=== PATIENT | female | born 2005 | race Caucasian/White ===

== ENCOUNTER 2025-08-01 10:58 | Emergency (ER) | payer BC, SELFPAY ==
--- NOTE | 2025-08-01 | ECG_ITS ---
Test Reason : SYNCOPE Blood Pressure : */* mmHG Vent. Rate : 93 BPM Atrial Rate : 93 BPM P-R Int : 144 ms QRS Dur : 78 ms QT Int : 350 ms P-R-T Axes : 36 31 36 degrees QTcB Int : 435 ms Normal sinus rhythm Normal ECG No previous ECGs available Referred By: Generic ED Physician Electronically Signed By: SERA RIOS MD
--- NOTE | ~2025-08-01 | XR_ITS ---
CLINICAL HISTORY: syncope 2 view chest x-ray Comparison: None provided Findings: The lungs are clear. Heart size is normal. No acute fracture. IMPRESSION: 1. No acute findings. This document has been electronically signed by: Jane Mendoza MD on 08/01/2025 12:24:45
[2025-08-01 11:00] VITALS: BP 96/64; PULSE 110; RESP 18; TEMP 36.3; O2SAT 98; BMI 32.6
--- NOTE | 2025-08-01 11:28 | ED_ITS ---
HPI - General Adult General Chief complaint: Syncope Stated complaint: passed out quest dehydration Time Seen by Provider: 08/01/25 11:28 Source: patient and family (patient's cousin once removed) Mode of arrival: ambulatory Limitations: no limitations History of Present Illness ED Provider: Ly Reveles PA-C HPI narrative: Patient is a 19 year old assigned female at with no reported medical history currently on Zepbound for weight loss presenting to the emergency department today with nausea, vomiting, diarrhea, and a syncopal episode. Patient states that her Zepbound dose was increased last week. Patient states that she has always had diarrhea on the Zepbound but it was much worse over the 24 hours and this morning she had an episode of passing out then once she awoke, she ate a donut and vomited. Patient states that she feels somewhat better now and is able to tolerate PO. Patient denies any oral contraceptive use, tobacco use, or recent travel. Patient denies any other complaints at this time. Related Data Allergies Allergy/AdvReac Type Severity Reaction Status Date / Time No Known Allergies Allergy Verified 08/01/25 11:05 Review of Systems 2 Constitutional: Constitutional: Reports as per HPI Eyes: Eyes: Reports as per HPI ENT: Reports as per HPI Cardiovascular: Cardiovascular: Reports as per HPI Respiratory: Respiratory: Reports as per HPI Gastrointestinal: Gastrointestinal: Reports as per HPI Genitourinary: Genitourinary: Reports as per HPI Musculoskeletal: Musculoskeletal: Reports as per HPI Integumentary/Breasts: Skin/Breast: Reports as per HPI Neurologic: Reports as per HPI Psychiatric: Psychiatric: Reports as per HPI Endocrine: Endocrine: Reports as per HPI Hematologic/Lymphatic: Hematologic/Lymphatic: Reports as per HPI Allergic/Immunologic: Allergic/Immunologic: Reports as per HPI PMF Past Medical History Attestation statement: The following information was validated with the patient. (all information validated with the patient's cousin once removed) Source: old records reviewed, obtained from family (patient's cousin once removed provided additional history and confirmed the history provided by the patient) and nursing notes reviewed Social History Social History Advance Directives: No Advance Directives Information Provided: No Do you have a plan to hurt others: No Plan Physical Exam ED Vital Signs: Vital Signs - 24 hr 08/01/25 11:00 08/01/25 12:53 Temperature 97.4 F 97.9 F Pulse Rate 110 H 80 Respiratory Rate 18 16 Blood Pressure 96/64 97/53 L Pulse Oximetry 98 100 Oxygen Delivery Method Room Air Room Air BMI result Body Mass Index 32.6 Const General: cooperative, no acute distress, alert and awake Nutritional Appearance: well nourished Orientation/consciousness: patient oriented x3 HENMT Head: Yes normal to inspection and Yes atraumatic Ears: hearing grossly normal bilaterally and external ears normal General nose exam: Normal external nose present, no nasal discharge noted and no epistaxis Face and sinus: Yes normal facial exam, No abrasion and No laceration Mouth: Normal oral and palatal mucosa present, no drooling and no muffled voice Eyes General: appearance normal, both eyes and all related structures Periorbital: periorbital findings normal Eyelids: Yes eyelids normal Conjunctivae: conjunctivae normal Pupils: Equal, round and reactive pupils present EOM: EOMs intact bilaterally Neck Neck: Yes normal visual inspection and Yes full ROM Resp Effort & Inspection: normal respiratory effort and able to speak in complete sentences Neuro General: patient oriented x3, moves all extremities and CN's II-XI intact bilaterally Cranial nerves: Yes Equal, round and reactive pupils present Cognition (Neuro): normal cognition Extrem General: Yes normal to inspection, Yes full ROM and Yes capillary refill normal Psych Appearance: grossly normal Mental Status: mental status grossly normal Affect: normal affect Attitude: cooperative Thought process: Normal thought process present Thought content: Normal thought content present Insight: Good insight present (Psych) Medications Administered Discontinued Medications Generic Name Dose Route Start Last Admin Trade Name Arcenioq PRN Reason Stop Dose Admin Sodium Chloride 1,000 mls @ 999 mls/hr 08/01/25 11:30 08/01/25 11:58 Ns IV 08/01/25 12:30 999 mls/hr .Q1H1M GAURAV Administration Medical Decision Making Medical Decision Making MDM Narrative: Patient is a 19 year old assigned female at with no reported medical history currently on Zepbound for weight loss presenting to the emergency department today with nausea, vomiting, diarrhea, and a syncopal episode. Patient's physical exam was as noted in the physical exam portion of this note. Patient's blood work showed a minimally elevated WBC count of 12.5 but otherwise unremarkable. This is consistent with a stress reaction s/p vomiting. Patient's EKG was unremarkable. Patient's clinical presentation is most consistent with poor tolerance of the zepbound dose increase. I explained my physical exam findings as well as all test results to the patient and the patient's cousin once removed. I answered all questions asked by the patient and the patient's cousin once removed. Patient received IV fluids which, upon re-evaluation, she stated it helped her significantly. I stressed the importance of the patient taking her medication as directed (either prescribed or as the over the counter packaging recommends). I stressed the importance of the patient following up with her primary care provider. I stressed the importance of the patient returning to the emergency department immediately if her symptoms were to worsen or if she were to develop any dizziness, shortness of breath, difficulty breathing, chest pain, blurry vision, loss of vision, nausea, vomiting, abdominal pain, fever, chills, back pain, or any other complaints. Patient and the patient's cousin once removed verbalized agreement and understanding with this treatment plan and discharge. Differential Diagnosis Differential Diagnoses: The differential diagnosis associated with the presentation includes Zepbound intolerance Nausea Vomiting Gastroenteritis Viral illness Diarrhea Admission/Observation Consideration of admission/observation: Escalation of care including admission/observation considered Patient would have been admitted to the hospital had her work up had any findings where hospital admission was appropriate and her clinical presentation warranted hospital admission. Lab Data [facility] Lab Attestation statement: I reviewed the patient's lab results. My interpretation of these results are in the [facility] Rationale portion of this note. 08/01/25 11:24 08/01/25 11:24 Labs: Lab Results 08/01/25 Range/Units 11:24 WBC 12.5 H (4.8-10.8) X10*3/uL RBC 5.21 (4.20-5.50) X10*6/uL Hgb 15.1 (12.0-16.0) g/dl Hct 45.8 (37.0-47.0) % MCV 87.9 (80.0-98.0) fL MCH 29.0 (27.0-33.0) pg MCHC 33.0 (31.0-35.0) g/dl RDW 12.9 (11.0-16.0) % Plt Count 275 (160-400) X10*3/uL MPV 9.8 (9.4-12.3) fL Immature Gran % (Auto) 0.2 (0.0-0.4) % Neut % (Auto) 88.9 H (45-73) % Lymph % (Auto) 6.3 L (20-40) % Troup % (Auto) 3.4 (2-11) % Eos % (Auto) 1.0 (0-4) % Baso % (Auto) 0.2 (0-2) % Lymph # (Auto) 0.8 L (1.2-4.9) X10*3/uL Troup # (Auto) 0.4 (0.1-1.2) X10*3/uL Eos # (Auto) 0.1 (0.0-0.4) X10*3/uL Baso # (Auto) 0.0 (0.0-0.2) X10*3/uL Abs Immat Gran (auto) 0.03 (0.00-0.03) X10*3/uL Absolute Neuts (auto) 11.1 H (2.0-8.3) x10*3/uL Absolute Nucleated RBC 0.000 (0.0-0.012) X10*3/uL Nucleated RBC % (auto) 0.0 (0.0-0.2) /100WBC Sodium 145 (135-145) mmol/L Potassium 4.7 (3.3-5.1) mmol/L Chloride 111 H (96-108) mmol/L Carbon Dioxide 25 (22-29) mmol/L Anion Gap 14 (12-20) BUN 21 H (9-16) mg/dL Creatinine 0.76 (0.5-1.4) mg/dL Estim Creat Clear Calc 128.9 Estimated GFR > 60 Random Glucose 106 (60-115) mg/dL Calcium 9.1 (8.4-10.2) mg/dL Magnesium 1.9 (1.6-2.6) mg/dL Total Bilirubin 0.9 (0.0-1.0) mg/dL AST 19 (5-31) U/L ALT 15 (0-31) U/L Alkaline Phosphatase 89 (39-117) U/L Troponin I High Sens < 2.7 (<3.5-17.0) ng/L Total Protein 7.6 (6.5-8.0) g/dL Albumin 4.8 (3.5-5.0) g/dL Lipase 18 (8-78) U/L Beta HCG, Quant < 2 mIU/mL Independent Interpretation I performed an independent interpretation of an: EKG Interpretation: I independently interpreted this EKG and am in agreement with the below findings: Vent. Rate: 93 BPM Atrial Rate: 93 BPM P-R Int: 144 ms QRS Dur: 78 ms QT Int: 350 ms P-R-T Axes: 36 31 36 degrees QTcB Int: 435 ms Normal sinus rhythm Normal ECG No previous ECGs available DD/ [id number] Independent Historian Clinical information obtained from an independent historian. History obtained from or confirmed by: Other (patient's cousin once removed provided additional history and confirmed the history provided by the patient. ) Tests considered The following testing was considered but not selected: I considered obtaining a CT scan of the abdomen/pelvis however, the patient's current clinical presentation did not warrant this. Discharge Plan Discharge Clinical Impression: Syncope, Diarrhea, Vomiting Patient Disposition: Home, Self-Care Instructions: Syncope (DC), Acute Nausea and Vomiting (DC), Acute Diarrhea (ED) Additional Instructions: Your work up today was reassuring there is no EMERGENT cause for your symptoms. I am suspicious that your episode today was secondary to your Zepbound dose increase - I recommend you go back down to your original dose and drink plenty of fluids. IF you are prescribed home medications and/or you are taking over the counter medications at home - it is very important you continue to do so as prescribed / directed unless told otherwise. Follow up with your primary care provider. Return to the emergency department immediately if your symptoms worsen or if you develop any numbness, tingling, dizziness, shortness of breath, difficulty breathing, chest pain, blurry vision, loss of vision, nausea, vomiting, abdominal pain, fever, chills, back pain, or any other complaints. Please see the information below about our Patient Portal. If you are not yet enrolled in the [facility] Patient Portal, you will receive an enrollment email invitation following your visit to any [facility] setting. You may also self-enroll in the Patient Portal by visiting our website: [email or web address] The following information is required to access the Patient Portal: - Your [facility] Medical Record Number - Your personal home email address (must match what is in your electronic medical record, Registration staff can assist with this) - Name - Date of Capabilities of the Patient Portal: - Message some providers - View upcoming appointments - Access your health summary, medical history, and visit history - View current conditions and allergies - View procedure and lab results - View your medications, including guidelines, side effects, and precautions - Complete pre-appointment questionnaires requested by your provider - Ready summary reports of your office visits and procedures To access the Patient Portal Mobile Thomas, follow these directions: - Search Driverdoth in the [employer] Store or [employer] Store - Download the Thomas - Search for [facility] - Enter your login/password Referrals: Shania Boucher PA [Primary Care Provider, Family Practice] Print Language: Maori
[2025-08-01 11:29] LABS: MANUAL DIFF FLAG NO
[2025-08-01 11:31] LABS: Hematocrit 45.8 % (37.0-47.0); Hemoglobin 15.1 g/dl (12.0-16.0); Imm Gran Abs Auto 0.03 X10*3/uL (0.00-0.03); Imm Gran Pct Auto 0.2 % (0.0-0.4); Lymphocytes Absolute Auto 0.8 X10*3/uL (1.2-4.9); Mean Corpuscular HGB Conc 33.0 g/dl (31.0-35.0); Mean Corpuscular Hemoglobin 29.0 pg (27.0-33.0); Mean Corpuscular Volume 87.9 fL (80.0-98.0); NRBC Abs Auto 0.000 X10*3/uL (0.0-0.012); NRBC Pct Auto 0.0 /100WBC (0.0-0.2); Platelet Count 275 X10*3/uL (160-400); Red Blood Count 5.21 X10*6/uL (4.20-5.50); White Blood Count 12.5 X10*3/uL (4.8-10.8)
[2025-08-01 11:51] LABS: Alanine Aminotransferase 15 U/L (0-31); Albumin Level 4.8 g/dL (3.5-5.0); Alkaline Phosphatase 89 U/L (39-117); Anion Gap 14 (12-20); Aspartate Amino Transferase 19 U/L (5-31); Blood Urea Nitrogen 21 mg/dL (9-16); Calcium 9.1 mg/dL (8.4-10.2); Carbon Dioxide 25 mmol/L (22-29); Chloride 111 mmol/L (96-108); Creatinine Clr Calc Pharmacy 128.9; Estimated Glomerular Filt Rate > 60; Magnesium 1.9 mg/dL (1.6-2.6); Potassium 4.7 mmol/L (3.3-5.1); Sodium 145 mmol/L (135-145); Total Protein 7.6 g/dL (6.5-8.0)
[2025-08-01 11:52] LABS: Troponin-I High Sensitivity < 2.7 ng/L (<3.5-17.0)
--- OUTSIDE RECORDS SUMMARY | 2025-08-01 11:53 | XMS_ITS | Clinical Summary ---
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 Then 1 drop, every 4 hours, while awake, for the next 5 days. 5 mL Active Additional Information Patient not taking.Reported on 10/20/2022 Active Problems Problem Noted Date Diagnosed Date Onychomycosis 04/20/2021 Encounters Date Type Department Care Team Description 05/25/2025 8:38 AM EDT - 05/25/2025 11:59 PM EDT Hospital Encounter [facility] [address] [place] [address] Venus Weaver PA Discharge Disposition: Home or Self Care from Last 3 Months Immunizations Immunization Administration Dates Next Due COVID-19 (Pre-08/13) Pfizer Vaccine, mRNA, PF 02/26/2021,02/05/2021 DTaP 08/19/2007, 5,02/19/2004,12/20,2003 HPV9 09/03/2017,08/29/2016 Hepatitis A, ped/adol, 2 dose 09/22/2019, 018 Hepatitis B, unspecified formulation 02/19/2004, 2003,2003 Hib, unspecified formulation 11/14/2004, 02/19/2004,2003,10/19 IPV 08/19/2007, 4,2003,10/19 Influenza Quadrivalent Prese rvative Free IM 08/04/2022,09/01/2021,07/02/2020,08/16,09/17/2018,07/04/2017 Influenza Quadrivalent w/ Pr eservative IM 09/13/2021,08/29/2016,08/24/2015 MMR 08/14/2008,08/15/2004 Meningococcal MCV4P 09/22/2019,08/29/2016 Pneumococcal conjugate, PCV 7 11/14/2004 ,08/15/2004,2003,08/19 Tdap 08/24/2015 Varicella 08/14/2008,08/15/2004 Social History Tobacco Use Types Packs/Day Years Used Date Smoking Tobacco: Never Smokeless Tobacco: Never Tobacco Cessation:Counseling Given: Not Answered Education Answer Date Recorded Are you interested in more education? Not on april e 02/16/2023 Are you concerned about learning? Not on file 02/16/2023 No 02/16/2023 No 02/16/2023 Digital Access Answer Date Recorded No 03/16/2023 No 03/16/2023 Reliable internet access at home? Not on file 03/16/2023 Device with a working camera? Not on file Comments Unknown Sex and Gender Information Value Date Recorded Sex Assigned at Not on file Legal Sex Female 8:44 PM EDT Gender Identity Not on file Sexual Orientation Not on file Last Filed Vital Signs Vital Sign Reading Time Taken Comments Blood Pressure 108/76 10/20/2022 10:42 AM EST Pulse 99 10/20/2022 10:42 AM EST Temperature 36.8 C (98.3 F) 10/20/2022 10:42 AM EST Respiratory Rate 18 05/31/2021 1:50 PM EDT Oxygen Saturation 100% 10/20/2022 10:42 AM EST Inhaled Oxygen Concentration - - Weight 86.2 kg (190 lb) 10/20/2022 10:42 AM EST Height 167.6 cm (5' 6 ) 10/20/2022 10:42 AM EST Body Mass Index 30.67 10/20/2022 10:42 AM EST Plan of Treatment Health Maintenance Due Date Last Done Comments DEPRESSION SCREENING 2015 SMOKING Hx and SMOKELESS TOBACCO SCREENING 2016 MENINGOCOCCAL VACCINES (B) (1 of 2 - Standard) 2019 ADOLESCENT UNIVERSAL LIPID SCREENING 2020 CHLAMYDIA SCREENING 09/22/2020 09/22/2019 HEPATITIS C SCREENING 2021 HIV ONE-TIME SCREENING (18-65 YEARS) 2021 INFLUENZA VACCINE (#1) 2025 , 09/13/2021, 09/01/2021, Additional history exists COVID-19 VACCINE ( season) 2025 08/04/2022, 10/07/2021, 02/26/2021, Additional history exists Adult Td,Tdap Booster 08/24/2025 08/24/2015 COMBINED DTaP,Tdap,Td (7 - Td or Tdap) 08/24/2025 08/24/2015, 08/19/2007, 11/14/2004, Additional history exists PAP SMEAR 05/25/2028 05/25/2025 HIB VACCINES Completed 11/14/2004, 01/22, 2003, Additional history exists PNEUMOCOCCAL VACCINES (0-49 years) Aged Out 11/14/2004, 08/15/2004, 2003, Additional history exists No longer eligible based on patient's age to complete this topic MMR VACCINES Completed 08/14/2008, 08/15/2004 HPV VACCINES Completed 09/03/2017, 08/29/2016 HEPATITIS A VACCINES Completed 09/22/2019, 09/17/20 18 MENINGOCOCCAL VACCINES (ACWY) Completed 09/22/2019, 08/29/2016 Medical Devices Not on file Procedures Procedure Name Priority Date/Time Associated Diagnosis Comments PAP TEST Routine 05/25/2025 12:00 AM EDT CHLAMYDIA TRACHOMATIS AND NEISSERIA GONORRHOEAE NUCLEIC ACID DETECTION Routine 09/22/2019 5:09 PM EST Encounter for routine child health examination without abnormal findings from Last 3 Months or Most Recently Relevant to Health Maintenance Results * Pap Test (05/25/2025 12:00 AM EDT) Report [address] [address] Commercial Lease Administrator: Freddy De Oliveira MD SATURATION DIVER Cytology Report FINAL DIAGNOSIS A. PAP SMEAR (THIN PREP) CE: SPECIMEN ADEQUACY: Satisfactory for evaluation; transformation zone present. INTERPRETATION: NEGATIVE FOR INTRAEPITHELIAL LESION OR MALIGNANCY. This specimen was analyzed by the automated ThinPrep Imaging System ([employer].) and the selected gonzalez were reviewed by a leaf size picker. Electronically Signed Out By: BRNADY eNal(ASCP) The Pap test is a screening test primarily for squamous cancers and precursors and has associated false-negative and false-positive results. New technologies such as liquid-based preparations may decrease but will not eliminate all false-negative results. Regular sampling and follow-up of unexplained clinical signs and symptoms are recommended to minimize false negative results. CLINICAL HISTORY Date of Last Menstrual Period: 04-23-2025 Other Clinical Conditions: Screening Pap SPECIMEN SOURCE A: PAP SMEAR (THIN PREP) CE Patient Name: ALVARO ASHLEY : 2005 (Age: 19) Sex: F Institution: [facility] Location: PSYCHIATRIC Date of Collection: 05/25/2025 Date of Reported: 05/28/2025 13:40 Results to: Venus ZAIDI [facility] Final Diagnosis A. PAP SMEAR (THIN PREP) CE: SPECIMEN ADEQUACY: Satisfactory for evaluation; transformation zone present. INTERPRETATION: NEGATIVE FOR INTRAEPITHELIAL LESION OR MALIGNANCY. This specimen was analyzed by the automated ThinPrep Imaging System ([employer] Em.) and the selected gonzalez were reviewed by a leaf size picker. [facility] Conversion Type 05/25/2025 10:10 AM EDT us Venus [facility] ORDERABLES Edited Result - Final [address] [address] * Chlamydia Trachomatis and Neisseria Gonorrhoeae Nucleic Acid Detection (09/22/2019 5:09 PM EST) CHLAMYDIA TRACHOMATIS Not Detected Not Detected [facility] NEISERIA GONORRHOEAE Not Detected Not Detected [facility] SPECIMEN TYPE URINE [facility] Urine (Urine) 09/22/2019 5:0 9 PM EST 09/22/2019 5:10 PM EST Marie Montes MD NON CULTURE MICROBIOLOG Y Final Result Performing Organization Address City/State/[facility] Co de Phone Number [facility] [address] [place] [address] from Last 3 Months or Most Recently Relevant to Health Maintenance Insurance [place] [address] [place] [address] PPO [employer]UE [employer] OUT OF STATE PPO [employer] [place] OUT OF STATE PPO [employer] [place] OUT OF STATE PPO PPO PPO PPO OUT [facility] PPO OUT [facility] PPO OUT [facility] PPO PPO OUT OF STATE PPO OUT [facility] PPO OUT OF STATE PPO Care Teams Hemming And Tacking Machine Operator Relationship Specialty Start Date End Date Shania Boucher PA [address] [place] [address] [email or web address] PCP - General 10/20/22 Additional Source Comments The information contained in this document represents components of the legal health record. It is not the complete legal health record.[facility]
--- OUTSIDE RECORDS SUMMARY | 2025-08-01 11:53 | XMS_ITS | Clinical Summary ---
Author Organization [facility] Address [address] [place] [phone] Phone Care Team Providers Care Body And Fender Mechanic Apprentice Name Role Phone Unavailable Primary Care Provider Unavailabl e Allergies No known active allergies Medications No known medications Active Problems Problem Noted Date Diagnosed Date Onychomycosis 04/20/2021 Social History Tobacco Use Types Packs/Day Years Used Date Smoking Tobacco: Never Assessed Comments Unknown Sex and Gender Information Value Date Recorded Sex Assigned at Not on file Legal Sex Female 9:23 AM EST Gender Identity Not on file Sexual Orientation Not on file Last Filed Vital Signs Vital Sign Reading Time Taken Comments Blood Pressure - - Pulse - - Temperature 37.2 C (99 F) 04/20/2021 6:28 PM EDT Respiratory Rate - - Oxygen Saturation - - Inhaled Oxygen Concentration - - Weight - - Height - - Body Mass Index - - Plan of Treatment Health Maintenance Due Date Last Done Comments Men B Vaccine (1 of 2 - Standard) 2019 Influenza Vaccines (#1) 2025 12/10/19 24, 08/04/2022, 09/13/2021, Additional history exists COVID-19 Vaccine (5 - 2024-2 6 season) 2025 08/04/2022, 10/07/2021, 02/26/2021, Additional history exists DTaP,Tdap,and Td Vaccines (7 - Td or Tdap) 08/24/2025 08/24/2015, 08/19/2007, 11/14/2004, Additional history exists Hepatitis B Vaccines Completed 02/19/2004, 2003, 2003 HIB Vaccines Completed 11/14/2004, 01/22, 2003, Additional history exists Pneumococcal Vaccine Completed 11/14/2004, 08/15/2004, 2003, Additional history exists IPV Vaccines Completed 08/19/2007, 07/23, 2003, Additional history exists MMR Vaccines Completed 08/14/2008, 08/15/2004 Varicella Vaccines Completed 08/14/2008, 08/15/2004 HPV Vaccines Completed 09/03/2017, 08/29/2016 Hepatitis A Vaccines Completed 09/22/2019, 09/17/20 18 Meningococcal Vaccine Completed 09/22/2019, 016
[2025-08-01 11:59] LABS: Lipase 18 U/L (8-78)
[2025-08-01 12:53] VITALS: BP 97/53; PULSE 80; RESP 16; TEMP 36.6; O2SAT 100
[2025-08-01 13:29] VITALS: BP 97/53; PULSE 80; RESP 16; TEMP 36.6; O2SAT 100
== END 2025-08-01 13:29 | disposition home or self-care (01) ==
PROVIDERS: Physician Assistant Medical; Emergency Provider Emergency Medicine; PCP Physician Assistant
DX: R55 Syncope and collapse (principal); R11.2 Nausea with vomiting, unspecified; R19.7 Diarrhea, unspecified; R10.22 Pelvic and perineal pain left side
CPT/HCPCS: 36415; 71046; 80053; 83690; 83735; 84484; 84702; 85025; 93005; 99283; 99284

== ENCOUNTER → 2025-08-01 11:16 | Outpatient (BNV) | payer BC, SELFPAY | PROVIDERS: Emergency Provider Emergency Medicine; PCP Physician Assistant; Visit Provider Internal Medicine Cardiovascular Disease | DX: R55 Syncope and collapse (principal) | CPT/HCPCS: 93010 ==

== ENCOUNTER → 2025-08-01 11:40 | Outpatient (BNV) | payer BC, SELFPAY | PROVIDERS: PCP Physician Assistant; Visit Provider Radiology Diagnostic Radiology | DX: R55 Syncope and collapse (principal) | CPT/HCPCS: 71046 ==